=== PATIENT | female | born 1995 | race Caucasian/White ===

== ENCOUNTER 2018-11-08 14:53 | Emergency (ER) | payer OTHER ==
[~2018-11-08] VITALS: Ht 170.2 cm; Wt 69.4 kg
--- NOTE | 2018-11-08 15:52 | NUR ---
Patient discharged to home in stable condition. Written and verbal after care instructions given. Patient verbalizes understanding of instruction.
[2018-11-08 15:53] VITALS: BP 105/60
[2018-11-08] MEDS ORDERED: IBUPROFEN 600 MG TABLET PO ONE (16:00)
== END 2018-11-08 15:54 | disposition home or self-care (01) ==
LOC: ER 14:59
DX: S29.012A Strain of muscle and tendon of back wall of thorax, initial encounter (principal); S16.1XXA Strain of muscle, fascia and tendon at neck level, initial encounter; V49.69XA Unspecified car occupant injured in collision with other motor vehicles in traffic accident, initial encounter; Y93.89 Activity, other specified; Y92.413 State road as the place of occurrence of the external cause; Y99.8 Other external cause status
CPT/HCPCS: 99282; A4606